=== PATIENT | female | born 1950 | race Hispanic/Latino ===

== ENCOUNTER 2020-02-11 09:50 | Emergency (ER) | payer MEDICARE ==
[~2020-02-11] VITALS: Ht 157.5 cm; Wt 81.6 kg
--- OUTSIDE RECORDS SUMMARY | 2020-02-11 09:53 | XMS REPORT ---
Author Author [facility] Address Unknown Phone Unavailable Care Team Providers Care [address] Reporter Name Role Phone Unavailable Unavailable Problems This patient has no known problems. Allergies, Adverse Reactions, Alerts This patient has no known allergies or adverse reactions. Medications This patient has no known medications. Encounters Start Date/Time End Date/Time Encounter Type Admission Type Attending [facility] Care Department Encounter ID 2019-07-31 00:00:00 2019-07-31 00:00:00 Outpatient [facility] [id number] 2019-07-31 00:00:00 2019-07-31 00:00:00 Outpatient [facility] [id number] 2019-07-19 19:59:07 2019-07-19 19:59:07 Emergency [facility] [id number] 2019-07-19 18:18:11 2019-07-19 18:18:11 Emergency [facility] [id number] 2019-07-19 17:32:34 2019-07-19 17:32:34 Emergency [facility] [id number] 2019-07-19 12:12:28 2019-07-19 12:12:28 Emergency [facility] [id number] 2019-07-19 12:08:39 2019-07-19 12:08:39 Emergency [facility] [id number] 2019-07-19 00:00:00 2019-07-19 00:00:00 Emergency [facility] [id number] 2019-07-19 00:00:00 2019-07-19 00:00:00 Emergency [facility] [id number] 2019-07-17 22:52:38 2019-07-17 22:52:38 Emergency [facility] [id number] 2019-07-17 20:02:48 2019-07-17 20:02:48 Emergency [facility] [id number] 2019-07-17 19:02:41 2019-07-17 19:02:41 Emergency [facility] [id number]
[2020-02-11] MEDS ORDERED: ONDANSETRON HCL INJ 2MG/ML 2ML 2 MG/ML VIAL IV STA (09:55)
[2020-02-11] MEDS ORDERED: MORPHINE SULFATE INJ 4 MG/ML INJ 1ML IV ONE (10:15)
[2020-02-11] MEDS ORDERED: MORPHINE SULFATE INJ 4 MG/ML INJ 1ML ONE (10:17)
[2020-02-11] MEDS ORDERED: ONDANSETRON HCL INJ 2MG/ML 2ML 2 MG/ML VIAL ONE (10:17)
--- NOTE | 2020-02-11 10:46 | Diagnostic Imaging Report ---
SHOULDER RIGHT COMPLETE -limited views HISTORY: ^Pain, deformity, limited range of motion. COMPARISON: None available. FINDINGS: There is anterior dislocation of right shoulder at the glenohumeral joint. The acromioclavicular joint is preserved. Limited views are obtained which limits evaluation of fractures, however no definite displaced fracture noted. Degenerative changes are seen in the lateral humeral joint. Degenerative changes are seen also in thoracic spine. IMPRESSION: Right shoulder anterior dislocation. Signed by: Zay Scanlon MD on 02/11/2020 10:42 AM
[2020-02-11] MEDS ORDERED: MIDAZOLAM HCL 2 MG/2 ML VIAL IV ONE (11:00)
[2020-02-11] MEDS ORDERED: PROPOFOL IV EMULSION 10 MG/ML 20 ML VIAL ONE (11:13)
[2020-02-11] MEDS ORDERED: PROPOFOL IV EMULSION 10 MG/ML 20 ML VIAL IV ONE (11:15)
--- NOTE | 2020-02-11 11:23 | NUR ---
client resting comfortably in room, no complaints voiced at this time. client tolerated procedure without incident.
[2020-02-11 11:41] VITALS: BP 120/64
== END 2020-02-11 11:57 | disposition home or self-care (01) ==
LOC: ER 09:50
DX: S43.084A Other dislocation of right shoulder joint, initial encounter (principal); Y93.84 Activity, sleeping; Y92.003 Bedroom of unspecified non-institutional (private) residence as the place of occurrence of the external cause; I10 Essential (primary) hypertension
CPT/HCPCS: 23655; 73030; 99282; J2250; J2270; J2405; J2704

== ENCOUNTER 2020-07-21 17:34 | Emergency (ER) | payer MEDICARE ==
[~2020-07-21] VITALS: Ht 162.6 cm; Wt 80.3 kg
[2020-07-21] MEDS ORDERED: FENTANYL CITRATE/PF 100MCG/2 ML INJ IV ONE (18:00)
[2020-07-21] MEDS ORDERED: PROPOFOL IV EMULSION 10 MG/ML 20 ML VIAL IV STA (18:07)
--- NOTE | 2020-07-21 18:13 | Emergency Department Note ---
History of Present Illnes History of Present Illness Chief Complaint: Extremity Trauma/Pain History of Present Illness This is a 69 year old female who attempted to reach and pickle sorter and item overhead when she heard a "pop" R shoulder .Prior h/o of R shoulder dislocation . 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 Any updates have been documented here. Past Medical History Recent Fever: No Clinical Suspicion of Infectio: No New/Unexplained Change in Ment: No Past Medical History: None Other Medical History: RIGHT SHOULDER DISLOCATION Past Surgical History: Hysterectomy Other Surgery: LEFT SHOULDER SURGERY Social History Smoking Cessation: Never Smoker Counseling Performed: No Alcohol Use: None Any Illegal Drug Use: No Review of Systems Review of Systems Constitutional: Reports no symptoms EENTM: Reports no symptoms Cardiovascular: Reports no symptoms Respiratory: Reports no symptoms Gastrointestinal: Reports no symptoms Genitourinary: Reports no symptoms Musculoskeletal: Reports joint pain Integumentary: Reports no symptoms Neurological: Reports no symptoms Psychological: Reports no symptoms Endocrine: Reports no symptoms Hematological/Lymphatic: Reports no symptoms Physical Exam Related Data Allergies: Coded Allergies: No Known Allergies (Unverified , 02/11/20) Triage Vital Signs Vital Signs Date Time Temp Pulse Resp B/P (MAP) Pulse Ox O2 Delivery O2 Flow Rate FiO2 07/21/20 17:41 98.1 89 18 181/95 100 Room Air Vital signs reviewed: Yes Physical Exam CONSTITUTIONAL Constitutional: Present well-developed, Present well-nourished HENT HENT: Present normocephalic, Present atraumatic, Present oropharynx clear/moist, Present nose normal HENT L/R: Present left ext ear normal, Present right ext ear normal EYES Eyes: Reports PERRL, Reports conjunctivae normal NECK Neck: Present ROM normal PULMONARY Pulmonary: Present effort normal, Present breath sounds normal CARDIOVASCULAR Cardiovascular: Present regular rhythm, Present heart sounds normal, Present capillary refill normal, Present normal rate GASTROINTESTINAL Abdominal: Present soft, Present nontender, Present bowel sounds normal GENITOURINARY Genitourinary: Present exam deferred SKIN Skin: Present warm, Present dry MUSCULOSKELETAL Musculoskeletal: Present tenderness, Present other (R shoulder dislocation , anterior dislocated) NEUROLOGICAL Neurological: Present alert, Present oriented x 3, Present no gross motor or sensory deficits PSYCHOLOGICAL Psychological: Present mood/affect normal, Present judgement normal Results Imaging Imaging results reviewed: Yes Impressions [place] [address] Patient Name: ADELFO BO MR #: [id number] : 1950 Age/Sex: 69/F Req #: [id number] Adm Physician: Ordered by: PHI MCCANN DO Report #: [id number] Location: ER Room/Bed: Procedure: [id number] DX/ELBOW RIGHT COMPLETE Exam Date: 07/21/20 Exam Time: 1929 REPORT STATUS: Signed SHOULDER RIGHT 1 VIEW, ELBOW RIGHT COMPLETE - Multiple views HISTORY: post shoulder reduction COMPARISON: Right shoulder view performed earlier same day. FINDINGS: There is interval reduction of the previously seen anterior dislocation of right shoulder. The humeral head appears slightly elevated with respect to the glenoid, although incompletely evaluated on this single view. The acromioclavicular joint is preserved. No definite fracture is seen, although evaluation is limited on this single view. Degenerative changes are seen in the lateral humeral joint. Degenerative changes are seen also in thoracic spine. The elbow joint is intact. IMPRESSION: Interval reduction of the previously seen anterior dislocation of right shoulder. The humeral head appears slightly elevated with respect to the glenoid, although incompletely evaluated on this single view. Recommend complete shoulder views for further evaluation. Signed by: Zay Zapata MD on 07/21/2020 8:27 PM Dictated By: ZAY ZAPATA MD 26 Transcribed By: DAVIAN on 07/21/202026 COPY TO: PHI MCCANN DO~ [facility] [address] [place] [address] Patient Name: ADELFO BO MR #: [id number] : 1950 Age/Sex: 69/F Req #: [id number] Adm Physician: Ordered by: PHI MCCANN DO Report #: [id number] Location: ER Room/Bed: Procedure: [id number] DX/SHOULDER RIGHT 1 VIEW Exam Date: 07/21/20 Exam Time: 1917 REPORT STATUS: Signed SHOULDER RIGHT 1 VIEW, ELBOW RIGHT COMPLETE - Multiple views HISTORY: post shoulder reduction COMPARISON: Right shoulder view performed earlier same day. FINDINGS: There is interval reduction of the previously seen anterior dislocation of right shoulder. The humeral head appears slightly elevated with respect to the glenoid, although incompletely evaluated on this single view. The acromioclavicular joint is preserved. No definite fracture is seen, although evaluation is limited on this single view. Degenerative changes are seen in the lateral humeral joint. Degenerative changes are seen also in thoracic spine. The elbow joint is intact. IMPRESSION: Interval reduction of the previously seen anterior dislocation of right shoulder. The humeral head appears slightly elevated with respect to the glenoid, although incompletely evaluated on this single view. Recommend complete shoulder views for further evaluation. Signed by: Zay Zapata MD on 07/21/2020 8:27 PM Dictated By: ZAY ZAPATA MD 26 Transcribed By: DAVIAN on 07/21/202026 COPY TO: PHI MCCANN DO~ [place] [address] Patient Name: ADELFO BO MR #: [id number] : 1950 Age/Sex: 69/F Req #: [id number] Adm Physician: Ordered by: Luke Connor MD Report #: [id number] Location: ER Room/Bed: Procedure: [id number] DX/SHOULDER RIGHT COMPLETE Exam Date: 07/21/20 Exam Time: 1819 REPORT STATUS: Signed SHOULDER RIGHT COMPLETE - Multiple views HISTORY: PAIN COMPARISON: Right shoulder view dated 02/11/2020. FINDINGS: There is anterior dislocation of right shoulder at the glenohumeral joint similar to prior exam. The acromioclavicular joint is preserved. Limited views are obtained which limits evaluation of fractures, however no definite displaced fracture noted. Degenerative changes are seen in the lateral humeral joint. Degenerative changes are seen also in thoracic spine. IMPRESSION: Right shoulder anterior dislocation similar to prior x-ray on 02/11/2020. Signed by: Zay Zapata MD on 07/21/2020 6:52 PM Dictated By: ZAY ZAPATA MD 51 Transcribed By: DAVIAN on 07/21/201851 COPY TO: LUKE CONNOR MD~ Procedures Orthopedic Joint Reduction Time out performed: Yes Side: right Joint reduction location: shoulder Analgesia: procedural sedation Shoulder technique used (if ap: traction/counter-traction Post-reduction neuor exam: intact Post-reduction vascular exam: intact Post-reduction xrays obtained: Yes Assessment & Plan Medical Decision Making MDM Diff Dx : dislocation, sprain, strain, fx Reassessment Reassessment improved Assessment & Plan Final Impression: (1) Shoulder dislocation (2) Hypertension (3) Elbow pain, right Depart Disposition: HOME, SELF-CARE Last Vital Signs Date Time Temp Pulse Resp B/P (MAP) Pulse Ox O2 Delivery O2 Flow Rate FiO2 07/21/20 17:41 98.1 89 18 181/95 100 Room Air Medications in the ED Fentanyl Citrate 50 mcg ONCE ONCE IV ; Start 07/21/20 at 18:00; Stop 07/21/20 at 18:03; Status DC PHI MCCANN DO Jul 21, 2020 18:13
[2020-07-21] MEDS ORDERED: KETAMINE HCL INJ 50 MG/ML 10 ML VIAL IV ONE (18:15)
--- OUTSIDE RECORDS SUMMARY | 2020-07-21 18:19 | XMS REPORT | Continuity of Care Document ---
Author Author NEXGRIDADELFO Panasas Information [employer] Address Unknown Phone Unavailable Care Team Providers Care Fixer Supervisor Name Role Phone [employer] Unavailable Un available Problems Problem Status Onset Date Classification Date Reported Comments Source LFT SHOULDER Active 02/28/2015 [facility] VITAMIN D DEFICIENCY Active 02/05/2015 Condition 02/05/2015 [facility] IMPAIRED FASTING GLUCOSE Active 02/05/2015 Condition 02/05/2015 [facility] ABNORMAL LIVER FUNCTION TESTS Active 02/05/2015 Condition 02/05/2015 [facility] LT SHOULDER Active 01/27/2015 [facility] BRONCHITIS Inactive 11/26/2014 Condition 02/05/2015 [facility] PREVENTIVE HEALTH CARE Active 08/18/2014 Condition 02/05/2015 [facility] BODY MASS INDEX 26.0-26.9, ADULT Active 08/18/2014 Condition 01/04/2015 [facility] SCREENING MAMMOGRAM NEC Active 08/18/2014 Condition 02/05/2015 [facility] DYSPEPSIA Inactive 08/18/2014 Condition 02/05/2015 [facility] BODY MASS INDEX 25.0-25.9, ADULT Active 08/18/2014 Condition 02/05/2015 [facility] CLOSED DISLOCATION OF SHOULDER, UNSPECIFIED SITE Active 05/07/2014 Condition 02/05/2015 [facility] ALLERGIC RHINITIS WITH CONJUNCTIVITIS Inactive 01/28/2014 Condition 02/05/2015 [facility] GASTRITIS Active 10/08/2013 Condition 05/07/2014 [facility] GERD Active 10/08/2013 Condition 02/05/2015 [facility] CONTUSION OF HAND Inactive 02/18/2013 Condition 02/05/2015 [facility] OTHER AND UNSPECIFIED HYPERLIPIDEMIA Active Condition 0 02/05/2015 [facility] OSTEOARTHRITIS Active Condition 02/05/2015 [facility] INJURY, LEG Inactive Condition 02/05/2015 [facility] ACUTE BRONCHITIS Inactive Condition 02/05/2015 [facility] SINUSITIS, ACUTE Inactive Condition 02/05/2015 [facility] VARICOSE VEIN Active Condition 02/05/2015 [facility] CELLULITIS, LEG, RIGHT Inactive Condition 02/05/2015 [facility] LEG PAIN Inactive Condition 02/05/2015 [facility] BREAST PAIN Inactive Condition 02/05/2015 [facility] OSTEOPENIA Active Condition 02/05/2015 [facility] SHOULDER PAIN Active [facility] Medications Medication Details Route Status Patient Instructions Ordering Provider Order Date Source LEVAQUIN 500 MG TABS Take one tablet by mouth once a day Active 02/05/2015 [facility] PROAIR HFA 108 (90 BASE) MCG/ACT AERS 2 puff every 6 hours as needed Active 02/05/2015 [facility] CHERATUSSIN AC 100-10 MG/5ML SYRP Take 10 ml every 6 hours as needed for cough Active 02/05/2015 [facility] NORCO 5-325 MG TABS take 1 tab by mouth every 4 to 6 hours as needed for pain Activ e 05/07/2014 [facility] DICLOFENAC SODIUM 50 MG TBEC T daina one tablet by mouth two times a day with meals as needed pain Active 05/07/2014 [facility] CHERATUSSIN AC 100-10 MG/5ML SYRP Take 7 ml every 6 hours as needed for cough No Longer Active 05/07/2014 [facility] PROAIR HFA 108 (90 BASE) MCG/ACT AERS 2 puff by mouth every 6 hours as needed No Longer Active 05/07/2014 [facility] LEVAQUIN 500 MG TABS Take one tablet by mouth once a day No Longer Active 05/07/2014 [facility] DICLOFENAC SODIUM 50 MG TBEC T daina one tablet by mouth two times a day with meals as needed pain Active 05/07/2014 [facility] TRAMADOL-ACETAMINOPHEN 37.5-325 MG TABS take every 12 hours as needed for pain No Longer Active 10/08/2013 [facility] TRAMADOL-ACETAMINOPHEN 37.5-325 MG TABS take every 12 hours as needed for pain No Longer Active 10/08/2013 [facility] TRAMADOL-ACETAMINOPHEN 37.5-325 MG TABS take every 12 hours as needed for pain No Longer Active 10/08/2013 [facility] DICLOFENAC TAB 50MG EC 1tablet twice daily as needed No Longer Active 05/07/2013 [facility] CEFDINIR 300 MG CAPS 1 tablet every 12 hours No Longer Active 05/07/2013 [facility] MUCINEX DM 30-600 MG TB12 1 ta b po q 12 hr No Longer Active 05/07/2013 [facility] DICLOFENAC TAB 50MG EC 1tablet twice daily as needed No Longer Active 05/07/2013 [facility] CEFDINIR 300 MG CAPS 1 tablet every 12 hours No Longer Active 05/07/2013 [facility] MUCINEX DM 30-600 MG TB12 1 ta b po q 12 hr No Longer Active 05/07/2013 [facility] DICLOFENAC TAB 50MG EC 1tablet twice daily as needed No Longer Active 05/07/2013 [facility] DICLOFENAC TAB 50MG EC 1tablet twice daily as needed No Longer Active 05/07/2013 [facility] NEXIUM 40 MG PACK 1 CAP BY MO UTH DAILY Active 04/29/2013 [facility] NEXIUM 20 MG CPDR Take one tab let by mouth once a day 20 minutes before breakfast Active 04/29/2013 [facility] CELEBREX 200 MG CAPS 1 po bid No Longer Active 11/27/2012 [facility] CELEBREX 200 MG CAPS 1 po bid No Longer Active 11/27/2012 [facility] CELEBREX 200 MG CAPS 1 po bid No Longer Active 11/27/2012 [facility] CELEBREX 200 MG CAPS 1 po bid No Longer Active 11/27/2012 [facility] Allergies, Adverse Reactions, Alerts No Known Medication Allergies Immunizations Immunization Date Given Site Status Last Updated Comments Source influenza immunization (Flu Vax) has been administered 08/18/2014 completed [facility] Results Order Name Results Value Reference Range Date Interpretation Comments Source Chemistry TSH 3.120 0.360 - 3.740 02/05/2015 [facility] CHOLESTEROL 166 - 199 02/05/2015 [facility] TRIGLYCERIDE 260 - 149 02/05/2015 [facility] Chemistry HDL 31 >=61 02/05/2015 [facility] Chemistry LDL 83 - 99 02/05/2015 [facility] SODIUM 141 MEQ/L 135 - 145 02/05/2015 [facility] POTASSIUM 3.9 MEQ/L 3.5 - 5.1 02/05/2015 [facility] CREATININE 0.8 0.5 - 1.4 02/05/2015 [facility] BUN 14 7 - 22 02/05/2015 [facility] Chemistry BUN/CREAT 18 6 - 25 02/05/2015 [facility] Chemistry ALBUMIN 3.8 3.5 - 5.0 02/05/2015 [facility] Chemistry CALCIUM 9.2 8.5 - 10.5 02/05/2015 [facility] Chemistry SGPT (ALT) 49 0 - 65 02/05/2015 [facility] SGOT (AST) 25 0 - 37 02/05/2015 [facility] ALK PHOS 86 39 - 136 02/05/2015 [facility] Hematology HGB 13.7 12.0 - 16.0 02/05/2015 [facility] H[facility] HCT 40.5 36.0 - 48.0 02/05/2015 [facility] Hematology PLATELETS 383 K/CMM 133 - 450 02/05/2015 [facility] Chemistry TSH 1.510 0.360 - 3.740 08/18/2014 [facility] CHOLESTEROL 198 - 199 08/18/2014 [facility] TRIGLYCERIDE 218 - 149 08/18/2014 [facility] Chemistry TSH 1.510 0.360 - 3.740 08/18/2014 [facility] CHOLESTEROL 198 - 199 08/18/2014 [facility] TRIGLYCERIDE 218 - 149 08/18/2014 [facility] Chemistry HDL 41 >=61 08/18/2014 [facility] Chemistry LDL 113 - 99 08/18/2014 [facility] SODIUM 139 MEQ/L 135 - 145 08/18/2014 [facility] POTASSIUM 4.2 MEQ/L 3.5 - 5.1 08/18/2014 [facility] CREATININE 0.7 0.5 - 1.4 08/18/2014 [facility] BUN 13 7 - 22 08/18/2014 [facility] Chemistry BUN/CREAT 19 6 - 25 08/18/2014 [facility] Chemistry ALBUMIN 4.1 3.5 - 5.0 08/18/2014 [facility] CALCIUM 9.0 8.5 - 10.5 08/18/2014 [facility] SGPT (ALT) 69 0 - 65 08/18/2014 [facility] SGOT (AST) 39 0 - 37 08/18/2014 [facility] ALK PHOS 83 39 - 136 08/18/2014 [facility] Chemistry TSH 1.510 0.360 - 3.740 08/18/2014 [facility] CHOLESTEROL 198 - 199 08/18/2014 [facility] TRIGLYCERIDE 218 - 149 08/18/2014 [facility] Chemistry HDL 41 >=61 08/18/2014 [facility] Chemistry LDL 113 - 99 08/18/2014 [facility] Chemistry SODIUM 139 MEQ/L 135 - 145 08/18/2014 [facility] Chemistry POTASSIUM 4.2 MEQ/L 3.5 - 5.1 08/18/2014 [facility] CREATININE 0.7 0.5 - 1.4 08/18/2014 [facility] Chemistry BUN 13 7 - 22 08/18/2014 [facility] Chemistry BUN/CREAT 19 6 - 25 08/18/2014 [facility] Chemistry ALBUMIN 4.1 3.5 - 5.0 08/18/2014 [facility] Chemistry CALCIUM 9.0 8.5 - 10.5 08/18/2014 [facility] Chemistry SGPT (ALT) 69 0 - 65 08/18/2014 [facility] Chemistry SGOT (AST) 39 0 - 37 08/18/2014 [facility] Chemistry ALK PHOS 83 39 - 136 08/18/2014 [facility] Hematology HGB 15.1 12.0 - 16.0 08/18/2014 [facility] Hematology HCT 45.1 36.0 - 48.0 08/18/2014 [facility] Hematology PLATELETS 374 K/CMM 133 - 450 08/18/2014 [facility] Hematology HGB 15.1 12.0 - 16.0 08/18/2014 [facility] Hematology HCT 45.1 36.0 - 48.0 08/18/2014 [facility] Hematology PLATELETS 374 K/CMM 133 - 450 08/18/2014 [facility] Pathology Reports No Data Provided for This Section Diagnostic Reports No Data Provided for This Section Consultation Notes No Data Provided for This Section Discharge Summaries No Data Provided for This Section History and Physicals No Data Provided for This Section Vital Signs Vital Sign Value Date Comments Source Height 64 0 02/05/2015 [facility] Weight 150 02/05/2015 [facility] Respitory Rate 16 02/05/2015 [facility] Temperature Oral (F) 97.5 F 02/05/2015 [facility] Systolic (mm Hg) 129 02/05/2015 [facility] Diastolic (mm Hg) 85 02/05/2015 [facility] Heart Rate 69 02/05/2015 [facility] Temperature Oral (F) 98.3 F 01/04/2015 [facility] Respitory Rate 16 01/04/2015 [facility] Heart Rate 68 01/04/2015 [facility] Systolic (mm Hg) 135 01/04/2015 [facility] Diastolic (mm Hg) 82 01/04/2015 [facility] Height 64 0 01/04/2015 [facility] Weight 151 01/04/2015 [facility] Weight 149 11/26/2014 [facility] Height 64 0 11/26/2014 [facility] Systolic (mm Hg) 134 11/26/2014 [facility] Diastolic (mm Hg) 79 11/26/2014 [facility] Respitory Rate 16 11/26/2014 [facility] Temperature Oral (F) 97.0 F 11/26/2014 [facility] Heart Rate 74 11/26/2014 [facility] Systolic (mm Hg) 140 08/18/2014 [facility] Diastolic (mm Hg) 85 08/18/2014 [facility] Respitory Rate 16 08/18/2014 [facility] Heart Rate 69 08/18/2014 [facility] Weight 154 08/18/2014 [facility] Temperature Oral (F) 98.0 F 08/18/2014 [facility] Weight 144.38 05/07/2014 [facility] Respitory Rate 12 05/07/2014 [facility] Heart Rate 80 05/07/2014 [facility] Systolic (mm Hg) 132 05/07/2014 [facility] Diastolic (mm Hg) 83 05/07/2014 [facility] Weight 147.25 01/28/2014 [facility] Temperature Oral (F) 98.3 F 01/28/2014 [facility] Heart Rate 69 01/28/2014 [facility] Systolic (mm Hg) 132 01/28/2014 [facility] Diastolic (mm Hg) 81 01/28/2014 [facility] Weight 147 10/08/2013 [facility] Temperature Oral (F) 96.9 F 10/08/2013 [facility] Respitory Rate 12 10/08/2013 [facility] Heart Rate 61 10/08/2013 [facility] Systolic (mm Hg) 139 10/08/2013 [facility] Diastolic (mm Hg) 93 10/08/2013 [facility] Weight 151.38 05/14/2013 [facility] Heart Rate 59 05/14/2013 [facility] Systolic (mm Hg) 118 05/14/2013 [facility] Diastolic (mm Hg) 79 05/14/2013 [facility] Height 64 0 05/07/2013 [facility] Weight 151.38 05/07/2013 [facility] Heart Rate 62 05/07/2013 [facility] Systolic (mm Hg) 119 05/07/2013 [facility] Diastolic (mm Hg) 77 05/07/2013 [facility] Encounters Location Location Details Encounter Type Encounter Number Reason For Visit Attending Provider ADM Date DC Date Status Source [facility] Office Visit [id number] Sage Scales MD 01/28/2014 01/28/2014 [facility] Office Visit [id number] Sage Scales MD 05/07/2014 05/07/2014 [facility] Office Visit [id number] Sage Scales MD 08/18/2014 08/18/2014 [facility] Lab Report [id number] Sage Scales MD 08/18/2014 08/18/2014 [facility] Lab Report [id number] Sage Scales MD 08/19/2014 08/19/2014 [facility] Office Visit [id number] Sage Scales MD 11/26/2014 11/26/2014 [facility] Office Visit [id number] Sage Scales MD 01/04/2015 01/04/2015 [facility] Patients [id number] Eulogio Downey 01/28/2015 02/27/2015 [facility] Office Visit [id number] Sage Scales MD 02/05/2015 02/05/2015 [facility] Lab Report [id number] Sage Scales MD 02/05/2015 02/05/2015 [facility] Patients [id number] Eulogio Downey 03/01/2015 03/31/2015 [facility] Therapy Patients [id number] Eulogio Downey 04/16/2015 05/16/2015 [facility] Procedures Procedure Code Date Perfomer Comments Source stool occult blood 11893 05/23/2013 Negative [facility] mammogram 76235 08/01/2011 Done [facility] bone density 4002.65 05/17/2010 Complete std dev [facility] Assessment and Plan No Data Provided for This Section Plan of Care No Data Provided for This Section Social History Social History Date Source No data available for this section 05/16/2015 [facility] No data available for this section 03/31/2015 [facility] Family History No Data Provided for This Section Advance Directives No Data Provided for This Section Functional Status No Data Provided for This Section
--- NOTE | 2020-07-21 18:55 | Diagnostic Imaging Report ---
SHOULDER RIGHT COMPLETE - Multiple views HISTORY: PAIN COMPARISON: Right shoulder view dated 02/11/2020. FINDINGS: There is anterior dislocation of right shoulder at the glenohumeral joint similar to prior exam. The acromioclavicular joint is preserved. Limited views are obtained which limits evaluation of fractures, however no definite displaced fracture noted. Degenerative changes are seen in the lateral humeral joint. Degenerative changes are seen also in thoracic spine. IMPRESSION: Right shoulder anterior dislocation similar to prior x-ray on 02/11/2020. Signed by: Zay Scanlon MD on 07/21/2020 6:52 PM
--- NOTE | 2020-07-21 19:07 | NUR ---
Verbal consent obtained from patient, staff development nurse Marina from [employer] assisted via audio call, patient gave verbal consent, Dr. Rondon went over risk and benefits of procedure and moderate sedation, patient verbalized understanding
--- NOTE | 2020-07-21 19:11 | NUR ---
Dr Rondon at bedside with this RN & RT preparing for concious sedation. Pt place on vehicle service agent, O2 on with capnometry, crash cart at bedside. Pt verbalizes understanding regarding procedure, VSS.
--- NOTE | 2020-07-21 19:12 | NUR ---
Sedation medication prepared & admisnistered by Dr Rondon at bedside.
--- NOTE | 2020-07-21 19:14 | NUR ---
Right shoulder dislocation reduce, pt still unresponsive, VSS. Will continue to monitor patient at this time.
--- NOTE | 2020-07-21 19:20 | NUR ---
Pt fully awake,alert & oriented x3. Pt crying & very emotional. Dr Rondon at bedside talking to pt. regarding discharge to home. No further complaints at this time.
[2020-07-21] MEDS ORDERED: HYDRALAZINE HCL 20 MG/ML VIAL IV STA (19:48)
--- NOTE | 2020-07-21 20:30 | Diagnostic Imaging Report ---
SHOULDER RIGHT 1 VIEW, ELBOW RIGHT COMPLETE - Multiple views HISTORY: post shoulder reduction COMPARISON: Right shoulder view performed earlier same day. FINDINGS: There is interval reduction of the previously seen anterior dislocation of right shoulder. The humeral head appears slightly elevated with respect to the glenoid, although incompletely evaluated on this single view. The acromioclavicular joint is preserved. No definite fracture is seen, although evaluation is limited on this single view. Degenerative changes are seen in the lateral humeral joint. Degenerative changes are seen also in thoracic spine. The elbow joint is intact. IMPRESSION: Interval reduction of the previously seen anterior dislocation of right shoulder. The humeral head appears slightly elevated with respect to the glenoid, although incompletely evaluated on this single view. Recommend complete shoulder views for further evaluation. Signed by: Zay Scanlon MD on 07/21/2020 8:27 PM
[2020-07-21 20:42] VITALS: BP 148/71
== END 2020-07-21 20:30 | disposition home or self-care (01) ==
LOC: ER 18:17
DX: S43.004A Unspecified dislocation of right shoulder joint, initial encounter (principal); M25.521 Pain in right elbow; X50.0XXA Overexertion from strenuous movement or load, initial encounter; I10 Essential (primary) hypertension
CPT/HCPCS: 99284; J3010

== ENCOUNTER 2021-04-21 15:37 | Emergency (ER) | payer MEDICARE ==
[~2021-04-21] VITALS: Ht 162.6 cm; Wt 80.3 kg
[2021-04-21] MEDS ORDERED: FENTANYL CITRATE/PF 100MCG/2 ML INJ IJ NR (16:14)
[2021-04-21] MEDS ORDERED: KETOROLAC TROMETHAMINE 30 MG/ML VIAL IM NR (16:14)
[2021-04-21] MEDS ORDERED: KETAMINE HCL INJ 50 MG/ML 10 ML VIAL IV STA (17:22)
[2021-04-21] MEDS ORDERED: PROPOFOL IV EMULSION 10 MG/ML 20 ML VIAL IV NR (18:15)
[2021-04-21] MEDS ORDERED: PROPOFOL IV EMULSION 50 ML IV ONE (18:27)
[2021-04-21 20:04] VITALS: BP 156/82
== END 2021-04-21 20:05 | disposition home or self-care (01) ==
LOC: ER 16:22
DX: M25.511 Pain in right shoulder (principal); S43.004A Unspecified dislocation of right shoulder joint, initial encounter; X50.1XXA Overexertion from prolonged static or awkward postures, initial encounter; Y92.008 Other place in unspecified non-institutional (private) residence as the place of occurrence of the external cause; I10 Essential (primary) hypertension
CPT/HCPCS: 99284; J1885; J3010

== ENCOUNTER 2023-01-08 10:57 | Observation (INO) | payer MEDICARE ==
[~2023-01-08] VITALS: Ht 162.6 cm; Wt 80.3 kg
[2023-01-08] VITALS (12 sets, daily range): BP systolic 86–124; BP diastolic 51–83
[2023-01-08] MEDS: DILTIAZEM HCL IV SOLN 125 MG in SODIUM CHLORIDE 0.9% 100 ML IV SCH ×2 (11:01→15:53)
[2023-01-08] MEDS ORDERED: SODIUM CHLORIDE FLUSH 10 ML SYR IV PRN (11:15)
[2023-01-08] MEDS ORDERED: DILTIAZEM HCL 5 MG/ML 5 ML VIAL IV ONE ×2 (11:15)
[2023-01-08 11:18] LABS: BASOPHILS # (AUTO) 0.1 (0.0-0.1); BASOPHILS % 1.1 % (0.0-1.0); EOSINOPHILS # (AUTO) 0.2 (0.0-0.4); EOSINOPHILS % 2.6 % (0.0-6.0); HEMATOCRIT 48.2 % (34.2-44.1); HEMOGLOBIN 16.8 g/dL (12.0-16.0); LYMPHOCYTES # (AUTO) 4.3 (1.0-3.2); MEAN CORPUSCULAR HEMOGLOBIN 30.2 pg (28-32); MEAN CORPUSCULAR HGB CONC 34.9 g/dL (31-35); MEAN CORPUSCULAR VOLUME 86.5 fL (81-99); MONOCYTES # (AUTO) 0.8 (0.2-0.8); MONOCYTES % 9.3 % (4.4-11.3); NEUTROPHILS # (AUTO) 3.3 (2.1-6.9); NEUTROPHILS % 37.4 % (38.7-80.0); PLATELET COUNT 438 x10e3/uL (140-360); RED BLOOD COUNT 5.57 x10e6/uL (3.6-5.1); RED CELL DISTRIBUTION WIDTH 12.6 % (11.7-14.4)
[2023-01-08 11:40] LABS: ALBUMIN/GLOBULIN RATIO 1.3 (0.8-2.0); ANION GAP 14.9 mmol/L (8-16); CALCIUM 9.8 mg/dL (8.4-10.2); CREATININE, SERUM 0.86 mg/dL (0.57-1.11); POTASSIUM 3.9 mmol/L (3.5-5.1)
[2023-01-08] MEDS ORDERED: DILTIAZEM HCL 30 MG TAB PO SCH (12:00)
[2023-01-08] MEDS ORDERED: ONDANSETRON HCL INJ 2MG/ML 2ML 2 MG/ML VIAL IV PRN ×2 (12:00→20:45)
[2023-01-08] MEDS ORDERED: SODIUM CHLORIDE FLUSH 10 ML SYR INJ PRN (12:00)
[2023-01-08] MEDS ORDERED: ASPIRIN 81 MG CHEW TAB PO ONE (12:00)
[2023-01-08] MEDS: ENOXAPARIN INJ 80 MG/0.8 ML SYR SC SCH ×2 (12:00→21:20)
[2023-01-08] MEDS ORDERED: DILTIAZEM HCL 60 MG TAB ONE (12:07)
[2023-01-08] MEDS ORDERED: AMIODARONE 900MG 500 ML IV SCH (18:00)
[2023-01-08] MEDS ORDERED: POLYETHYLENE GLYCOL 3350 17 GM PACK PO PRN (20:45)
[2023-01-08] MEDS ORDERED: METOPROLOL TARTRATE INJ 1 MG/ML VIAL IV PRN (20:45)
[2023-01-08] MEDS ORDERED: ACETAMINOPHEN 325 MG TAB PO PRN (20:45)
[2023-01-08] MEDS ORDERED: PROVENTIL HFA6.7 GM INH (21:52)
[2023-01-08] MEDS ORDERED: PROTONIX20 MG PO (21:52)
[2023-01-08] MEDS ORDERED: BENZONATATE100 MG PO (21:52)
[2023-01-08] MEDS ORDERED: PAXLOVID 150-11 EACH PO (21:52)
[2023-01-08] MEDS ORDERED: GUAIFENESIN/DEXTROMETHORPHAN LIQD 5 ML UDC PO PRN (23:45)
[2023-01-08] MEDS ORDERED: MELATONIN 3 MG TAB PO PRN (23:45)
[2023-01-09] VITALS (23 sets, daily range): BP systolic 101–142; BP diastolic 50–83
[2023-01-09] MEDS ORDERED: AMIODARONE 900MG 500 ML IV SCH
[2023-01-09] MEDS ORDERED: ALBUTEROL SULFATE HFA 8GM INHALATION AEROSOL INH PRN
[2023-01-09 04:58] LABS: BASOPHILS # (AUTO) 0.1 (0.0-0.1); BASOPHILS % 1.4 % (0.0-1.0); EOSINOPHILS # (AUTO) 0.3 (0.0-0.4); EOSINOPHILS % 3.5 % (0.0-6.0); HEMATOCRIT 43.6 % (34.2-44.1); HEMOGLOBIN 14.4 g/dL (12.0-16.0); LYMPHOCYTES # (AUTO) 3.2 (1.0-3.2); LYMPHOCYTES % 39.5 % (18.0-39.1); MEAN CORPUSCULAR VOLUME 90.8 fL (81-99); MONOCYTES # (AUTO) 0.8 (0.2-0.8); NEUTROPHILS # (AUTO) 3.6 (2.1-6.9); NEUTROPHILS % 44.5 % (38.7-80.0); PLATELET COUNT 371 x10e3/uL (140-360); RED CELL DISTRIBUTION WIDTH 12.7 % (11.7-14.4)
[2023-01-09 05:16] LABS: ALBUMIN 3.4 g/dL (3.5-5.0); ALBUMIN/GLOBULIN RATIO 1.2 (0.8-2.0); ANION GAP 11.8 mmol/L (8-16); CALCIUM 8.7 mg/dL (8.4-10.2); CREATININE, SERUM 0.81 mg/dL (0.57-1.11); POTASSIUM 3.8 mmol/L (3.5-5.1)
[2023-01-09 05:33] LABS: CHOL/HDL RATIO 5.4 (3.0-3.6); MAGNESIUM 2.1 MG/DL (1.3-2.1); PHOSPHORUS 3.6 MG/DL (2.3-4.7)
[2023-01-09 05:54] LABS: THYROID STIMULATING HORMONE 1.635 uIU/mL (0.350-4.940)
[2023-01-09 06:55] LABS: CREATINE KINASE MB 0.7 ng/mL (0-5.0)
[2023-01-09] MEDS: DOCUSATE SODIUM 100 MG CAP PO SCH ×2 (08:05→16:26)
[2023-01-09] MEDS: BENZONATATE 100 MG CAP PO SCH (08:06)
[2023-01-09] MEDS: MULTIVITAMINS/MINERALS TAB PO SCH (08:06)
[2023-01-09] MEDS: PANTOPRAZOLE SOD 40 MG TABEC PO SCH (08:06)
[2023-01-09 08:54] LABS: CREATINE KINASE MB 0.7 ng/mL (0-5.0)
[2023-01-09] MEDS: ENOXAPARIN INJ 80 MG/0.8 ML SYR SC SCH ×2 (09:05→21:12)
[2023-01-09] MEDS: DILTIAZEM HCL 180 MG CAP ER PO SCH (11:19)
[2023-01-09] MEDS: DRONEDARONE 400 MG TAB PO SCH (16:26)
[2023-01-09] MEDS ORDERED: PANTOPRAZOLE SOD 40 MG TABEC PO SCH (21:00)
[2023-01-10] VITALS (13 sets, daily range): BP systolic 107–140; BP diastolic 45–75
[2023-01-10] MEDS: PANTOPRAZOLE SOD 40 MG TABEC PO SCH (07:13)
[2023-01-10] MEDS: DRONEDARONE 400 MG TAB PO SCH (07:13)
[2023-01-10] MEDS: DOCUSATE SODIUM 100 MG CAP PO SCH (08:50)
[2023-01-10] MEDS: MULTIVITAMINS/MINERALS TAB PO SCH (08:50)
[2023-01-10] MEDS: BENZONATATE 100 MG CAP PO SCH (08:50)
[2023-01-10] MEDS: ENOXAPARIN INJ 80 MG/0.8 ML SYR SC SCH (08:51)
[2023-01-10] MEDS: DILTIAZEM HCL 180 MG CAP ER PO SCH (08:51)
[2023-01-10] MEDS ORDERED: MELATONIN3 MG PO (12:57)
[2023-01-10] MEDS ORDERED: MULTAQ 400MG T400 MG PO (12:57)
[2023-01-10] MEDS ORDERED: DILTIAZEM 24HR180 M1 PO (12:57)
[2023-01-10] MEDS ORDERED: Docusate Sodium PO (12:57)
[2023-01-10] MEDS ORDERED: Multivitamins/Minerals PO (12:57)
[2023-01-10] MEDS ORDERED: ELIQUIS5 MG PO (12:57)
[2023-01-10] MEDS ORDERED: APIXABAN 5 MG TABLET PO SCH (17:00)
== END 2023-01-10 13:40 | disposition home or self-care (01) ==
LOC: ER 11:02 → ERHOLD 11:50 → INTOOBSV 11:50 → ICU 16:20
PROVIDERS: ADMIT Internal Medicine; ATTEND Internal Medicine
DX: I48.0 Paroxysmal atrial fibrillation (principal); Z79.01 Long term (current) use of anticoagulants; E66.09 Other obesity due to excess calories; Z68.30 Body mass index [BMI] 30.0-30.9, adult; E78.5 Hyperlipidemia, unspecified; E11.69 Type 2 diabetes mellitus with other specified complication; E78.1 Pure hyperglyceridemia; Z20.822 Contact with and (suspected) exposure to COVID-19; J45.909 Unspecified asthma, uncomplicated; K29.70 Gastritis, unspecified, without bleeding
CPT/HCPCS: 36415; 71045; 80053; 80061; 82550; 82553; 83036; 83735; 84100; 84443; 84484; 85025; 93005; 93306; 94760; 94799; 99252; 99285; G0378; J1650; J7050

== ENCOUNTER 2025-02-10 02:42 | Emergency (ER) | payer MEDICARE ==
[~2025-02-10] VITALS: Ht 162.6 cm; Wt 81.6 kg
[~2025-02-10 02:42] MED LIST: BENZONATATE100 MG PO; DILTIAZEM 24HR180 M1 PO; Docusate Sodium PO; ELIQUIS5 MG PO; MELATONIN3 MG PO; MULTAQ 400MG T400 MG PO; Multivitamins/Minerals PO; PAXLOVID 150-11 EACH PO; PROTONIX20 MG PO; PROVENTIL HFA6.7 GM INH
[2025-02-10 02:50] VITALS: PULSE 78; RESP 16; TEMP 98.6; O2SAT 98
[2025-02-10 03:14] LABS: BASOPHILS # (AUTO) 0.1 (0.0-0.1); BASOPHILS % 0.6 % (0.0-1.0); EOSINOPHILS % 0.5 % (0.0-6.0); HEMATOCRIT 41.8 % (34.2-44.1); LYMPHOCYTES # (AUTO) 1.7 (1.0-3.2); LYMPHOCYTES % 19.2 % (18.0-39.1); MEAN CORPUSCULAR HEMOGLOBIN 30.2 pg (28-32); MEAN CORPUSCULAR HGB CONC 33.5 g/dL (31-35); MEAN CORPUSCULAR VOLUME 90.3 fL (81-99); MONOCYTES % 11.1 % (4.4-11.3); NEUTROPHILS # (AUTO) 5.9 (2.1-6.9); NEUTROPHILS % 68.4 % (38.7-80.0); PLATELET COUNT 297 x10e3/uL (140-360); RED BLOOD COUNT 4.63 x10e6/uL (3.6-5.1); RED CELL DISTRIBUTION WIDTH 13.1 % (11.7-14.4); WHITE BLOOD COUNT 8.58 x10e3/uL (4.8-10.8)
[2025-02-10] MEDS: LIDOCAINE VISC 2% SOLN 15 ML UDC PO STA (03:17)
[2025-02-10] MEDS: MAGNESIUM/ALUMINUM/SIMETHICONE 30 ML UDC PO STA (03:17)
[2025-02-10] MEDS: BELLADONNA ALK/PHENOBARBITAL 5 ML UDC PO ONE (03:17)
[2025-02-10] MEDS: ONDANSETRON HCL INJ 2MG/ML 2ML 2 MG/ML VIAL IV STA (03:17)
[2025-02-10] MEDS: SODIUM CHLORIDE 0.9% 1000ML 1,000 ML IV STA (03:18)
[2025-02-10 03:43] LABS: ALBUMIN 3.7 g/dL (3.5-5.0); ALBUMIN/GLOBULIN RATIO 1.3 (0.8-2.0); ANION GAP 13.4 mmol/L (8-16); BILIRUBIN,TOTAL 0.6 mg/dL (0.2-1.2); CALCIUM 8.3 mg/dL (8.4-10.2); CREATININE, SERUM 0.72 mg/dL (0.57-1.11); TOTAL PROTEIN 6.6 g/dL (6.5-8.1)
[2025-02-10 03:44] LABS: POTASSIUM 3.4 mmol/L (3.5-5.1)
[2025-02-10 04:02] LABS: TROPONIN I 0.004 ng/mL (0-0.300)
[2025-02-10 04:23] LABS: CLARITY,URINE CLEAR (CLEAR); COLOR,URINE YELLOW (YELLOW); GLUCOSE, URINE NEGATIVE (NEGATIVE); KETONES,URINE 1+ (NEGATIVE); LEUKOCYTE ESTERASE ,URINE TRACE (NEGATIVE); NITRITE,URINE NEGATIVE (NEGATIVE); PH,URINE 6.5 (5 - 7); PROTEIN,URINE DIPSTICK TRACE (NEGATIVE)
[2025-02-10 04:24] LABS: BILIRUBIN,URINE NEGATIVE (NEGATIVE)
[2025-02-10 04:28] LABS: BACTERIA,URINE MODERATE /HPF; EPITHELIAL CELLS,URINE FEW /LPF
[2025-02-10] MEDS ORDERED: ONDANSETRON ODT4 MG PO (04:59)
[2025-02-10] MEDS ORDERED: PANTOPRAZOLE SO40 MG PO (04:59)
[2025-02-10] MEDS ORDERED: IOPAMIDOL 370 MG/ML 100 ML INFUS..BTL INJ ONE (05:48)
== END 2025-02-10 05:30 | disposition home or self-care (01) ==
LOC: ER 02:45
DX: R11.2 Nausea with vomiting, unspecified (principal); R19.7 Diarrhea, unspecified; R10.13 Epigastric pain; I10 Essential (primary) hypertension
CPT/HCPCS: 36415; 74177; 80053; 81001; 82550; 83690; 84484; 85025; 93005; 99284; J2405; Q9967